=== PATIENT | female | born 1970 | race Hispanic/Latino ===

== ENCOUNTER 2017-05-12 11:03 | Emergency (ER) | payer MEDICAID, OTHER ==
[2017-05-12 11:04] VITALS: BMI 30.4
[2017-05-12 11:19] VITALS: BP 138/87; PULSE 88; RESP 20; TEMP 97.8; O2SAT 95
[2017-05-12 12:09] LABS: RBC URINE < 1 /hpf (0-3); URINE BACTERIA MANY (<OCC); URINE BILIRUBIN NEGATIVE (NEGATIVE); URINE BLOOD 1+ (NEGATIVE); URINE COLOR Yellow (YELLOW); URINE GLUCOSE (UA) NORMAL (Normal); URINE KETONE NEGATIVE (NEGATIVE); URINE LEUKOCYTE ESTERASE 3+ Leu/uL (Negative); URINE PROTEIN NEGATIVE (NEGATIVE); URINE UROBILINOGEN NORMAL mg/dL (0.2-1.0); WBC URINE 89 /hpf (0-5)
--- NOTE | 2017-05-12 12:59 | C.PDOC ---
History Of Present Illness 46 yr old female presents to the ER stating she has history of frequent UTIs and for the past 3-4 days she has had dysuria and suprapubic pain radiating to lower back. Patient also reports of vaginal discharge and also reports of "bump " near the clitoris. Patient denies fever, nausea, vomiting, diarrhea, weakness or numbness. Time Seen by Provider: 05/12/17 11:30 Chief Complaint (Nursing): Female Genitourinary History Per: Patient History/Exam Limitations: no limitations Onset/Duration Of Symptoms: Days (3-4) Past Medical History Reviewed: Historical Data, Nursing Documentation, Vital Signs Vital Signs: Last Vital Signs Temp 97.8 F 05/12/17 11:18 Pulse 88 05/12/17 11:18 Resp 20 05/12/17 11:18 BP 138/87 05/12/17 11:18 Pulse Ox 95 05/12/17 20:36 - Medical History PMH: CVA, Gastritis, Multiple Sclerosis - [facility] Procedures INJECT/INFUSE NEC (04/28/14) PSYCHIA INTERV/EVAL NEC (09/18/14) Family History: States: No Known Family Hx - Social History Hx Tobacco Use: No Hx Alcohol Use: No Hx Substance Use: No - Immunization History Hx Tetanus Toxoid Vaccination: No Hx Influenza Vaccination: Yes Hx Pneumococcal Vaccination: Yes Review Of Systems Except As Marked, All Systems Reviewed And Found Negative. Constitutional: Negative for: Fever Gastrointestinal: Positive for: Abdominal Pain (Suprapubic). Negative for: Nausea, Vomiting, Diarrhea Genitourinary: Positive for: Vaginal Discharge Neurological: Negative for: Weakness, Numbness Physical Exam - Physical Exam Appears: Non-toxic, No Acute Distress Skin: Warm, Dry, No Rash Head: Atraumatic, Normacephalic Eye(s): bilateral: Normal Inspection, PERRL, EOMI Oral Mucosa: Moist Neck: Normal ROM, Supple Chest: Symmetrical, No Tenderness Cardiovascular: Rhythm Regular, No Friction Rub, No Murmur Respiratory: Normal Breath Sounds, No Rales, No Rhonchi, No Stridor, No Wheezing Gastrointestinal/Abdominal: Normal Exam, Soft, No Tenderness, No Guarding, No Rebound Pelvic: No Vaginal Bleeding, No Cervical Motion Tenderness, No Adnexal Tenderness, Other ((+) Area of irritation to the pubic external exam, No vesicles. Clitoral ring intact. (+) whitish, foul smelling discharge) Extremity: Normal ROM, No Swelling Neurological/Psych: Oriented x3, Normal Speech, Normal Motor, Normal Sensation Gait: Steady ED Course And Treatment O2 Sat by Pulse Oximetry: 95 (RA) Pulse Ox Interpretation: Normal Medical Decision Making Medical Decision Making: PLAN: * HCG * Urinalysis * Cipro PO * Flagyl PO * Pyridium PO UA is (+) UTI. Patient treated with antibiotics. Disposition - Disposition Referrals: Justyna Hay MD [Staff Provider] - Disposition: HOME/ ROUTINE Disposition Time: 12:56 Condition: GOOD Additional Instructions: Follow up with the medical doctor within 1-2 days. Return if worsened. Prescriptions: Ciprofloxacin [Cipro] 1 tab PO BID #14 tab metroNIDAZOLE [Flagyl] 500 mg PO BID #14 tab Miconazole/Cleanser 17 On Wipe [Monistat 7 Combination Pack] 1 each VG DAILY #1 kit Instructions: Urinary Tract Infection in Women (DC), Vaginitis (ED) Forms: [employer] (Uzbek) - Clinical Impression Clinical Impression: Urinary tract infection, Vaginitis - PA / LAWN MOWER MECHANIC / Resident Statement MD/DO has reviewed & agrees with the documentation as recorded. - Scribe Statement The provider has reviewed the documentation as recorded by the Scribe Karla Mercado All medical record entries made by the Scribe were at my direction and personally dictated by me. I have reviewed the chart and agree that the record accurately reflects my personal performance of the history, physical exam, medical decision making, and the department course for this patient. I have also personally directed, reviewed, and agree with the discharge instructions and disposition.
== END 2017-05-12 13:12 | disposition home or self-care (01) ==
LOC: C.ER 11:03
DX: N39.0 Urinary tract infection, site not specified (principal); N76.0 Acute vaginitis

== ENCOUNTER 2017-11-12 13:32 | Emergency (ER) | payer MEDICAID, OTHER ==
[2017-11-12 13:32] VITALS: BMI 27.4
[2017-11-12 13:43] VITALS: BP 124/80; PULSE 94; TEMP 97.6; O2SAT 99
--- NOTE | 2017-11-12 14:12 | C.PDOC ---
History Of Present Illness 46 year old female with no PMHx as per patient, presents to the Ed c/o numbness , paresthesia and pain to bilateral upper extremities primarily when waking in the morning. Patient was seen at [facility] for pain to bilateral lower extremities s/p fall, patient had X-Rays done that showed no fracture. Patient reports she currently lives in a intermediate and that she is taking Xanax for " a skin condition and menopause". Patient denies fever, chills, nausea, vomit, back pain, headache. PMD : Dr. Hay Time Seen by Provider: 11/12/17 13:47 Chief Complaint (Nursing): Upper Extremity Problem/Injury History Per: Patient History/Exam Limitations: no limitations Onset/Duration Of Symptoms: Days Current Symptoms Are (Timing): Still Present Quality: "Pain" Recent travel outside of the [place]: No Additional History Per: Patient Past Medical History Reviewed: Historical Data, Nursing Documentation, Vital Signs Vital Signs: Last Vital Signs Temp 97.6 F 11/12/17 13:38 Pulse 94 H 11/12/17 13:38 Resp 17 11/12/17 14:21 BP 124/80 11/12/17 13:38 Pulse Ox 99 11/12/17 14:56 - Medical History PMH: CVA, Gastritis, Multiple Sclerosis Denies: Chronic Kidney Disease Surgical History: No Surg Hx - [facility] Procedures INJECT/INFUSE NEC (04/28/14) PSYCHIA INTERV/EVAL NEC (09/18/14) Family History: States: Unknown Family Hx - Social History Hx Tobacco Use: No Hx Alcohol Use: No Hx Substance Use: No - Immunization History Hx Tetanus Toxoid Vaccination: No Hx Influenza Vaccination: Yes Hx Pneumococcal Vaccination: Yes Review Of Systems Constitutional: Negative for: Fever, Chills Cardiovascular: Negative for: Chest Pain Respiratory: Negative for: Shortness of Breath Gastrointestinal: Negative for: Nausea, Vomiting Musculoskeletal: Positive for: Arm Pain Skin: Negative for: Rash Neurological: Positive for: Numbness. Negative for: Headache Physical Exam - Physical Exam Appears: Non-toxic, No Acute Distress, Other (disorganized, hypomanic) Skin: Normal Color, Warm, Dry Head: Atraumatic, Normacephalic Eye(s): bilateral: Normal Inspection Oral Mucosa: Moist Neck: Normal ROM, No Midline Cervical Tenderness, Supple Chest: Symmetrical Cardiovascular: Rhythm Regular Respiratory: Normal Breath Sounds, No Rales, No Rhonchi, No Wheezing Back: No Vertebral Tenderness, No Paraspinal Tenderness Extremity: Normal ROM, No Tenderness, Capillary Refill (< 2 seconds), No Swelling Extremity: Bilateral: Atraumatic, Normal Color And Temperature Pulses: Left Radial: Normal, Right Radial: Normal Neurological/Psych: Oriented x3, Normal Speech, Normal Motor, Normal Sensation Gait: Steady ED Course And Treatment O2 Sat by Pulse Oximetry: 99 (ON RA) Pulse Ox Interpretation: Normal Medical Decision Making Medical Decision Making: Impression: numbness to bilateral upper extremities Plan: * Tylenol 975 mg PO * Motrin 600 mg PO * Gabapentin 300 mg PO Patient was discussed with Dr. Hay who agrees with plan to start patient on Gabapentin for neuropathic pain Disposition Discussed With : Justyna Hay Doctor Will See Patient In The: Office Counseled Patient/Family Regarding: Need For Followup, Rx Given - Disposition Referrals: Justyna Hay MD [Staff Provider] - Disposition: HOME/ ROUTINE Disposition Time: 14:10 Condition: STABLE Prescriptions: Gabapentin 300 mg PO TID #12 capsule Forms: [facility] (Persian), General Discharge Instructions - POA Present On Arrival: None - Clinical Impression Clinical Impression: Numbness and tingling of both upper extremities - Scribe Statement The provider has reviewed the documentation as recorded by the Scribe Tio Thorpe All medical record entries made by the Scribe were at my direction and personally dictated by me. I have reviewed the chart and agree that the record accurately reflects my personal performance of the history, physical exam, medical decision making, and the department course for this patient. I have also personally directed, reviewed, and agree with the discharge instructions and disposition.
[2017-11-12 14:51] VITALS: RESP 17
== END 2017-11-12 14:21 | disposition home or self-care (01) ==
LOC: C.ER 13:32
DX: R20.2 Paresthesia of skin (principal); G35 Multiple sclerosis; Z86.73 Personal history of transient ischemic attack (TIA), and cerebral infarction without residual deficits

== ENCOUNTER 2018-01-15 21:32 | Emergency (ER) | payer MEDICAID, OTHER ==
[2018-01-15 21:33] VITALS: BMI 27.4
[2018-01-15 21:45] VITALS: BP 122/86; PULSE 82; RESP 16; TEMP 98.1; O2SAT 98
[2018-01-15 22:05] LABS: HCG,QUALITATIVE URINE NEGATIVE (NEGATIVE); SQUAMOUS EPITHIAL 6 /hpf (0-5); URINE BACTERIA OCC (<OCC); URINE BILIRUBIN NEGATIVE (NEGATIVE); URINE BLOOD 1+ (NEGATIVE); URINE CLARITY Hazy (Clear); URINE COLOR Yellow (YELLOW); URINE GLUCOSE (UA) NORMAL (Normal); URINE LEUKOCYTE ESTERASE TRACE Leu/uL (Negative); URINE PROTEIN NEGATIVE (NEGATIVE); URINE UROBILINOGEN NORMAL mg/dL (0.2-1.0)
--- NOTE | 2018-01-15 22:22 | C.PDOC ---
History Of Present Illness Patient complains of frequent urination but little amounts and associated with dysuria and flank pain since last night. She has history of prior UTIs and this feels similar. Denies fever, nausea, vomiting, abdominal pain. Time Seen by Provider: 01/15/18 22:13 Chief Complaint (Nursing): Back Pain History Per: Patient History/Exam Limitations: no limitations Onset/Duration Of Symptoms: Days Current Symptoms Are (Timing): Still Present Quality Of Discomfort: Burning Associated Symptoms: Back Pain (Flank), Urinary Symptoms (Dysuria, Frequency). denies: Fever, Chills, Nausea, Vomiting, Other (Abdominal pain) Alleviating Factors: None Recent travel outside of the [place]: No Abnormal Vaginal Bleeding: No Past Medical History Reviewed: Historical Data, Nursing Documentation, Vital Signs Vital Signs: Last Vital Signs Temp 98.1 F 01/15/18 21:42 Pulse 82 01/15/18 21:42 Resp 16 01/15/18 21:42 BP 122/86 01/15/18 21:42 Pulse Ox 98 01/15/18 22:37 - Medical History PMH: CVA, Gastritis, Multiple Sclerosis, Chronic Kidney Disease [facility] INJECT/INFUSE NEC (04/28/14) PSYCHIA INTERV/EVAL NEC (09/18/14) Family History: States: Unknown Family Hx - Social History Hx Tobacco Use: No Hx Alcohol Use: No Hx Substance Use: No - Immunization History Hx Tetanus Toxoid Vaccination: No Hx Influenza Vaccination: Yes Hx Pneumococcal Vaccination: Yes Review Of Systems Constitutional: Negative for: Fever, Chills Gastrointestinal: Negative for: Nausea, Vomiting, Abdominal Pain Genitourinary: Positive for: Dysuria, Frequency Musculoskeletal: Positive for: Back Pain (Flank) Physical Exam - Physical Exam Appears: Non-toxic Skin: Normal Color, Warm, Dry Head: Atraumatic, Normacephalic Eye(s): bilateral: Normal Inspection Oral Mucosa: Moist Chest: Symmetrical, No Tenderness Cardiovascular: Rhythm Regular Respiratory: Normal Breath Sounds, No Rales, No Rhonchi, No Wheezing Gastrointestinal/Abdominal: Bowel Sounds, Soft, No Tenderness, No Guarding, No Rebound Back: Normal Inspection, No CVA Tenderness Extremity: Bilateral: Atraumatic, Normal ROM Neurological/Psych: Oriented x3, Normal Speech ED Course And Treatment O2 Sat by Pulse Oximetry: 98 (Room air) Pulse Ox Interpretation: Normal Medical Decision Making Medical Decision Making: Impression: dysuria Plan: * UA * UCG Progress: UA shows LE, WBCs and bacteria. Patient symptomatic and will treat for UTI with Keflex. Patient remained afebrile in no distress. No signs of pyelonephritis. Patient stable discharge. Disposition Counseled Patient/Family Regarding: Diagnosis, Need For Followup, Rx Given - Disposition Referrals: Justyna Hay MD [Staff Provider] - Disposition: HOME/ ROUTINE Disposition Time: 22:22 Condition: GOOD Additional Instructions: Take antibiotic twice daily and be sure to finish taking all of antibiotic. Drink plenty of fluids. Follow up with your primary medical doctor or clinic in 2-5 days for further evaluation Prescriptions: Cephalexin [cephalexin] 500 mg PO Q12 #14 cap Instructions: Urinary Tract Infection, Adult (DC) Forms: [facility] (Trinidadian) - POA Present On Arrival: None - Clinical Impression Clinical Impression: Urinary tract infection - PA / GLACIOLOGIST / Resident Statement MD/DO has reviewed & agrees with the documentation as recorded. - Scribe Statement The provider has reviewed the documentation as recorded by the Scribham Byers All medical record entries made by the Britibham were at my direction and personally dictated by me. I have reviewed the chart and agree that the record accurately reflects my personal performance of the history, physical exam, medical decision making, and the department course for this patient. I have also personally directed, reviewed, and agree with the discharge instructions and disposition.
== END 2018-01-15 23:18 | disposition home or self-care (01) ==
LOC: C.ER 21:32
DX: N39.0 Urinary tract infection, site not specified (principal); G35 Multiple sclerosis; N18.9 Chronic kidney disease, unspecified; Z86.73 Personal history of transient ischemic attack (TIA), and cerebral infarction without residual deficits

== ENCOUNTER 2018-04-23 09:16 | Emergency (ER) | payer MEDICAID, OTHER ==
[2018-04-23 09:16] VITALS: BMI 27.4
[2018-04-23 09:26] VITALS: BP 135/88; PULSE 58; RESP 18; TEMP 97.8; O2SAT 97
== END 2018-04-23 09:31 | disposition left against medical advice (07) ==
LOC: C.ER 09:16
DX: Z02.89 Encounter for other administrative examinations (principal); R30.0 Dysuria

== ENCOUNTER 2018-07-02 09:58 | Emergency (ER) | payer MEDICAID, OTHER ==
[2018-07-02 09:58] VITALS: BMI 29.9
[2018-07-02 10:13] VITALS: BP 143/68; PULSE 99; RESP 20; TEMP 97.7; O2SAT 98
[2018-07-02 10:51] LABS: SQUAMOUS EPITHIAL 6 /hpf (0-5); URINE BILIRUBIN NEGATIVE (NEGATIVE); URINE BLOOD NEGATIVE (NEGATIVE); URINE CLARITY Hazy (Clear); URINE COLOR Yellow (YELLOW); URINE GLUCOSE (UA) NORMAL (Normal); URINE LEUKOCYTE ESTERASE NEG Leu/uL (Negative); URINE PROTEIN NEGATIVE (NEGATIVE)
--- NOTE | 2018-07-02 11:03 | C.PDOC ---
Time Seen by Provider: 07/02/18 10:29 Chief Complaint (Nursing): Female Genitourinary Past Medical History Vital Signs: Last Vital Signs Temp 97.7 F 07/02/18 10:06 Pulse 99 H 07/02/18 10:06 Resp 20 07/02/18 10:06 BP 143/68 07/02/18 10:06 Pulse Ox 98 07/02/18 10:06 - Medical History PMH: Anxiety, CVA, Gastritis, Chronic Kidney Disease, TIA Denies: Diabetes, Hepatitis, HIV, HTN, Multiple Sclerosis, Seizures, Sexually Transmitted Disease - [facility] Procedures INJECT/INFUSE NEC (04/28/14) PSYCHIA INTERV/EVAL NEC (09/18/14) Family History: States: Unknown Family Hx - Social History Hx Tobacco Use: No Hx Alcohol Use: No Hx Substance Use: No - Immunization History Hx Tetanus Toxoid Vaccination: No Hx Influenza Vaccination: Yes Hx Pneumococcal Vaccination: Yes ED Course And Treatment - Laboratory Results Lab Results: Urine Color Yellow (YELLOW) 07/02/18 10:30 Urine Clarity Hazy (Clear) 07/02/18 10:30 Urine pH 5.0 (5.0-8.0) 07/02/18 10:30 Ur Specific [place] 1.025 (1.003-1.030) 07/02/18 10:30 Urine Protein Negative mg/dL (NEGATIVE) 07/02/18 10:30 Urine Glucose (UA) Normal mg/dL (Normal) 07/02/18 10:30 Urine Ketones Negative mg/dL (NEGATIVE) 07/02/18 10:30 Urine Blood Negative (NEGATIVE) 07/02/18 10:30 Urine Nitrate Negative (NEGATIVE) 07/02/18 10:30 Urine Bilirubin Negative (NEGATIVE) 07/02/18 10:30 Urine Urobilinogen 2.0 mg/dL (0.2-1.0) H 07/02/18 10:30 Ur Leukocyte Esterase Neg Rubio/uL (Negative) 07/02/18 10:30 Urine WBC (Auto) 1 /hpf (0-5) 07/02/18 10:30 Urine RBC (Auto) 1 /hpf (0-3) 07/02/18 10:30 Ur Squamous Epith Cells 6 /hpf (0-5) H 07/02/18 10:30 Urine HCG, Qual Negative (NEGATIVE) 07/02/18 10:42 Urine HCG, Qual Negative (NEGATIVE) 07/02/18 10:42 O2 Sat by Pulse Oximetry: 98 Medical Decision Making Medical Decision Making: pt c/o vulvar/vaginal/dysuria discomfort many presentations for same large rolling suitcase suggests homeless internally motivated, babbling, bizarre, confabulatory suggests underlying mental illness pt refused pelvic/vaginal eval, left ED very angry and foul mouthed claiming she was sent by the Police to evaluate us, highly unlikely and did not prove ID to this effect eloped defer abx with no UTI/preg Disposition Doctor Will See Patient In The: Office Counseled Patient/Family Regarding: Studies Performed, Diagnosis - Disposition Disposition: HOME/ ROUTINE Disposition Time: 11:03 Condition: GOOD - Clinical Impression Clinical Impression: Dysuria
--- NOTE | 2018-07-02 23:39 | C.PDOC ---
History Of Present Illness 47-year-old female presents to the ED for evaluation of dysuria which began a few days ago. Patient has had multiple presentations to [facility] Emergency Department and [place] [facility] for the same. She denies fever, chills, vaginal discharge or discomfort at this time. Time Seen by Provider: 07/02/18 10:29 Chief Complaint (Nursing): Female Genitourinary History Per: Patient History/Exam Limitations: no limitations Onset/Duration Of Symptoms: Days Current Symptoms Are (Timing): Still Present Associated Symptoms: Urinary Symptoms (dysuria ). denies: Fever, Chills Additional History Per: Patient Abnormal Vaginal Bleeding: No Past Medical History Reviewed: Historical Data, Nursing Documentation, Vital Signs Vital Signs: Last Vital Signs Temp 97.7 F 07/02/18 10:06 Pulse 99 H 07/02/18 10:06 Resp 20 07/02/18 10:06 BP 143/68 07/02/18 10:06 Pulse Ox 98 07/02/18 11:03 - Medical History PMH: Anxiety, CVA, Gastritis, Chronic Kidney Disease, TIA Denies: Diabetes, Hepatitis, HIV, HTN, Multiple Sclerosis, Seizures, Sexually Transmitted Disease Surgical History: No Surg Hx - [facility] Procedures INJECT/INFUSE NEC (04/28/14) PSYCHIA INTERV/EVAL NEC (09/18/14) Family History: States: Unknown Family Hx - Social History Hx Tobacco Use: No Hx Alcohol Use: No Hx Substance Use: No - Immunization History Hx Tetanus Toxoid Vaccination: No Hx Influenza Vaccination: Yes Hx Pneumococcal Vaccination: Yes Review Of Systems Constitutional: Negative for: Fever, Chills Genitourinary: Positive for: Dysuria. Negative for: Vaginal Discharge Physical Exam - Physical Exam Appears: Non-toxic, No Acute Distress, Other (Bizarre, disheveled, rolling a large suitcase (apparently homeless)) Skin: Normal Color, Warm, Dry Head: Atraumatic, Normacephalic Eye(s): bilateral: Normal Inspection Oral Mucosa: Moist Neck: Supple Pelvic: Other (refusing ) Neurological/Psych: Other (internally motivated, confabulatory ) ED Course And Treatment - Laboratory Results Lab Results: Urine Color Yellow (YELLOW) 07/02/18 10:30 Urine Clarity Hazy (Clear) 07/02/18 10:30 Urine pH 5.0 (5.0-8.0) 07/02/18 10:30 Ur Specific [place] 1.025 (1.003-1.030) 07/02/18 10:30 Urine Protein Negative mg/dL (NEGATIVE) 07/02/18 10:30 Urine Glucose (UA) Normal mg/dL (Normal) 07/02/18 10:30 Urine Ketones Negative mg/dL (NEGATIVE) 07/02/18 10:30 Urine Blood Negative (NEGATIVE) 07/02/18 10:30 Urine Nitrate Negative (NEGATIVE) 07/02/18 10:30 Urine Bilirubin Negative (NEGATIVE) 07/02/18 10:30 Urine Urobilinogen 2.0 mg/dL (0.2-1.0) H 07/02/18 10:30 Ur Leukocyte Esterase Neg Rubio/uL (Negative) 07/02/18 10:30 Urine WBC (Auto) 1 /hpf (0-5) 07/02/18 10:30 Urine RBC (Auto) 1 /hpf (0-3) 07/02/18 10:30 Ur Squamous Epith Cells 6 /hpf (0-5) H 07/02/18 10:30 Urine HCG, Qual Negative (NEGATIVE) 07/02/18 10:42 Urine HCG, Qual Negative (NEGATIVE) 07/02/18 10:42 O2 Sat by Pulse Oximetry: 98 (on RA) Pulse Ox Interpretation: Normal Progress Note: Urinalysis ordered and reviewed. Medical Decision Making Medical Decision Making: pt c/o vulvar/vaginal/dysuria discomfort many presentations for same large rolling suitcase suggests homeless internally motivated, babbling, bizarre, confabulatory suggests underlying mental illness pt refused pelvic/vaginal eval, left ED very angry and foul mouthed claiming she was sent by the Police to evaluate us, highly unlikely and did not prove ID to this effect eloped defer abx with no UTI/preg Disposition - Disposition Disposition: ELOPEMENT - ER ONLY Disposition Time: 11:03 Condition: GOOD Instructions: Dysuria, Adult (DC) Forms: [facility] (French) - Clinical Impression Clinical Impression: Dysuria - Scribe Statement The provider has reviewed the documentation as recorded by the Scribe (Elaine Wakefield) Provider Attestation: All medical record entries made by the Scribe were at my direction and personally dictated by me. I have reviewed the chart and agree that the record accurately reflects my personal performance of the history, physical exam, medical decision making, and the department course for this patient. I have also personally directed, reviewed, and agree with the discharge instructions and disposition.
== END 2018-07-02 11:00 | disposition left against medical advice (07) ==
LOC: C.ER 09:58
DX: R30.0 Dysuria (principal)

== ENCOUNTER 2018-08-13 06:45 | Emergency (ER) | payer MEDICAID, OTHER ==
[2018-08-13 06:45] VITALS: BMI 31.6
[2018-08-13 06:58] VITALS: RESP 20; TEMP 98
[2018-08-13 08:10] LABS: HCG,QUALITATIVE URINE NEGATIVE (NEGATIVE)
[2018-08-13 08:13] LABS: SQUAMOUS EPITHIAL 2 /hpf (0-5); URINE BILIRUBIN NEGATIVE (NEGATIVE); URINE BLOOD NEGATIVE (NEGATIVE); URINE CLARITY Hazy (Clear); URINE COLOR Yellow (YELLOW); URINE GLUCOSE (UA) NORMAL (Normal); URINE LEUKOCYTE ESTERASE TRACE Leu/uL (Negative); URINE PROTEIN NEGATIVE (NEGATIVE); URINE UROBILINOGEN NORMAL mg/dL (0.2-1.0)
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
[2018-08-13 09:24] VITALS: BP 90/53; PULSE 90
[2018-08-13 11:33] VITALS: O2SAT 99
== END 2018-08-13 09:31 | disposition home or self-care (01) ==
LOC: C.ER 06:45
DX: R30.0 Dysuria (principal)

== ENCOUNTER 2018-09-19 19:39 | Emergency (ER) | payer MEDICAID, OTHER ==
[2018-09-19 19:40] VITALS: BMI 31.6
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
[2018-09-19 20:24] LABS: BASO % 0.5 % (0.0-2.0); EOS # 0.1 K/uL (0.0-0.7); EOS % 0.7 % (0.0-4.0); HEMOGLOBIN 13.3 g/dL (11.0-16.0); LYMPH # 0.8 K/uL (1.0-4.3); LYMPH % 9.1 % (20.0-40.0); MEAN CELL VOLUME 82.3 fL (81.0-99.0); MEAN CORPUSCULAR HEMOGLOBIN 26.7 pg (27.0-31.0); MEAN CORPUSCULAR HGB CONC 32.5 g/dL (33.0-37.0); MEAN PLATELET VOLUME 8.2 fL (7.2-11.7); MONO # 0.4 K/uL (0.0-0.8); MONO % 4.4 % (0.0-10.0); NEUT # 7.3 K/uL (1.8-7.0); NEUT % 85.3 % (50.0-75.0); NRBC % 0.1 % (0.0-2.0); PLATELET COUNT 273 K/uL (130-400); RBC 4.99 Mil/uL (3.80-5.20); RED CELL DISTRIBUTION WIDTH 17.4 % (11.5-14.5); WHITE BLOOD COUNT 8.6 K/uL (4.8-10.8)
[2018-09-19 20:36] LABS: ALB/GLOB RATIO 1.3 (1.0-2.1); ALBUMIN 4.5 g/dL (3.5-5.0); BLOOD UREA NITROGEN 19 mg/dL (7-17); CALCIUM 9.7 mg/dl (8.6-10.4); GFR NON-AFRICAN AMERICAN > 60
[2018-09-19 20:38] LABS: PROTHROMBIN TIME 10.5 SECONDS (9.7-12.2)
[2018-09-19 20:50] LABS: ALT/SGPT 20 U/L (9-52); AST/SGOT 43 U/L (14-36)
[2018-09-19] MEDS ORDERED: Sodium Chloride 0.9% 1,000 ML ONE (20:56)
[2018-09-19] MEDS: Sodium Chloride 0.9% 1,000 ML IV ONE (20:56)
[2018-09-19] MEDS ORDERED: Iodixanol 320 mg/ml 150 ml Bottle IV ONE (21:06)
[2018-09-19 22:27] LABS: LYMPHOCYTE 12 % (20-40); MONOCYTE 3 % (0-10); NEUTROPHIL 85 % (50-75); TOTAL CELLS COUNTED 100
[2018-09-19 22:28] LABS: PLATELET ESTIMATE NORMAL (NORMAL)
[2018-09-19 22:29] LABS: HYPOCHROMIC SLIGHT
[2018-09-19 22:30] LABS: ANISOCYTOSIS SLIGHT
[2018-09-20] MEDS: Alum-Mag Hydrox-Simethicone Susp (30 mL) PO STA (00:04)
[2018-09-20] MEDS ORDERED: Aluminum Hydroxide/Magnesium Hydroxide Susp (30 mL) ONE (00:07)
[2018-09-20 02:28] VITALS: RESP 20
[2018-09-20 04:24] VITALS: BP 109/68; PULSE 65; TEMP 97.3; O2SAT 97
--- NOTE | 2018-09-20 15:02 | CT ---
Date of service: 09/19/2018 PROCEDURE: CTA HEAD AND NECK WITH CONTRAST HISTORY: headache/ neck pain COMPARISON: None available. TECHNIQUE: Initial noncontrast head CT was performed. Subsequently, CT angiogram of the head and neck were performed after the intravenous administration of 80 mL of Omnipaque 350. Contiguous 1.5mm thick images were obtained in the axial plane of the neck. 2-D coronal and sagittal MPR images were obtained. Imaging postprocessing was performed with 3-D images also obtained. A delayed contrast head CT was also obtained. This CT exam was performed using one or more of the following dose reduction techniques: Automated exposure control, adjustment of the mA and/or kV according to patient size, and/or use of iterative reconstruction technique. Contrast dose: 100 mL Visipaque 320 Radiation dose: Total exam DLP = 573.87 mGy-cm. FINDINGS: HEAD: Right: The intracranial internal carotid artery, and anterior and middle cerebral arteries are widely patent. Left: The intracranial internal carotid artery, and anterior and middle cerebral arteries are widely patent. Posterior circulation: The visualized intracranial vertebral arteries, basilar artery and posterior cerebral arteries are widely patent. There is no endoluminal filling defect to suggest thrombus. There is no intracranial saccular aneurysm. NECK: There is a three vessel aortic arch. There is no stenosis at the origins of the great vessels at the level of the aortic arch. No atherosclerotic calcification or mural plaque present. Right Carotid: On the right, the common carotid, internal carotid and external carotid arteries are widely patent. There is no hemodynamically significant stenosis in the internal carotid artery by NASCET criteria. Left Carotid: On the left, the common carotid, internal carotid and external carotid arteries are widely patent. There is no hemodynamically significant stenosis in the internal carotid artery by NASCET criteria. The vertebral arteries are widely patent. The lung apices are clear. IMPRESSION: 1. No evidence of endoluminal thrombus,occlusion or definite significant stenosis in the intracranial arteries. 2. No evidence of hemodynamically significant stenosis in the internal carotid arteries. 3. Patent bilateral vertebral arteries. A preliminary report was provided by [facility].
--- NOTE | 2018-09-20 23:49 | CARD ---
APPROVED REPORT Date of service: 09/19/2018 EKG Measurement Heart [id number] <Conclusion> Normal sinus rhythm with sinus arrhythmia Normal ECG
== END 2018-09-20 05:55 | disposition home or self-care (01) ==
LOC: C.ER 19:39
DX: R51 Headache (principal); Z59.0 Homelessness; Z86.73 Personal history of transient ischemic attack (TIA), and cerebral infarction without residual deficits
CPT/HCPCS: 70496; 70498; 80053; 81025; 82948; 85025; 85610; 85730; 93005; 96374; 99285; J1885; J7030; Q9967

== ENCOUNTER 2018-10-11 19:56 | Emergency (ER) | payer OTHER ==
[2018-10-11 19:56] VITALS: BMI 31.6
[2018-10-11 20:26] VITALS: BP 127/78; PULSE 78; RESP 20; TEMP 98.4; O2SAT 100
--- NOTE | 2018-10-11 20:41 | C.PDOC ---
History Of Present Illness 47 year old female presents with bruising to the left antecubital area. Patient states she was seen at a hospital in [place], IV access was attempted but unsuccessful and left bruise and pain to the left arm that is radiating to the left axilla and left breast area. She reports Hx of breast implant and is concerned that the implant is being affected. No medication or dye was injected into IV as they were never able to get access. Denies fever, SOB, chest pain, swelling, or redness. Time Seen by Provider: 10/11/18 20:28 Chief Complaint (Nursing): Upper Extremity Problem/Injury History Per: Patient History/Exam Limitations: no limitations Onset/Duration Of Symptoms: Days Current Symptoms Are (Timing): Still Present Recent travel outside of the [place] States: No Past Medical History Reviewed: Historical Data, Nursing Documentation, Vital Signs Vital Signs: Last Vital Signs Temp 98.4 F 10/11/18 20:05 Pulse 78 10/11/18 20:05 Resp 20 10/11/18 20:05 BP 127/78 10/11/18 20:05 Pulse Ox 100 10/11/18 20:05 Primary Care Provider: Justyna Hay - Medical History PMH: Anxiety, CVA, Gastritis, TIA Denies: Diabetes, Hepatitis, HIV, HTN, Multiple Sclerosis, Chronic Kidney Disease, Seizures, Sexually Transmitted Disease - [facility] Procedures INJECT/INFUSE NEC (04/28/14) PSYCHIA INTERV/EVAL NEC (09/18/14) Family History: States: Unknown Family Hx - Social History Hx Tobacco Use: No Hx Alcohol Use: No Hx Substance Use: No - Immunization History Hx Tetanus Toxoid Vaccination: Yes Hx Influenza Vaccination: Yes Hx Pneumococcal Vaccination: Yes Review Of Systems Constitutional: Negative for: Fever Respiratory: Negative for: Shortness of Breath Musculoskeletal: Positive for: Other (Left arm pain) Skin: Positive for: Bruising Neurological: Negative for: Weakness, Numbness Physical Exam - Physical Exam Appears: Non-toxic Skin: Warm, Other (Heat rash to mid upper chest not involving the breast.) Head: Atraumatic, Normacephalic Eye(s): bilateral: Normal Inspection Lymphatic: No Axilla Node Tenderness Chest: Symmetrical, No Tenderness, No Ecchymosis, No Other (Swelling) Extremity: Normal ROM (x4), Capillary Refill (<2 seconds), Other (Superficial ecchymosis to left lateral antecubital area. No palpable induration, no warmth, no tenderness, no swelling.) Pulses: Left Radial: Normal, Right Radial: Normal Neurological/Psych: Oriented x3, Normal Speech, Normal Motor, Normal Sensation ED Course And Treatment O2 Sat by Pulse Oximetry: 100 (Room air) Pulse Ox Interpretation: Normal Progress Note: Patient is resting comfortably in no acute distress, vitals are stable, she was reassured and discharged home with instructions to follow up with PMD. Disposition Counseled Patient/Family Regarding: Diagnosis, Need For Followup, Rx Given - Disposition Disposition: HOME/ ROUTINE Disposition Time: 20:39 Condition: STABLE Additional Instructions: Please follow up with PMD Apply cold compress to area Take tylenol for pain Return to ER if moderate swelling, redness, weakness of the arm, difficulty breathing or worse Instructions: Superficial Phlebitis Forms: [facility] (German), Gen Discharge Inst Frisian - Clinical Impression Clinical Impression: Thrombophlebitis arm, Arm bruise - PA / RELIGION TEACHER / Resident Statement MD/DO has reviewed & agrees with the documentation as recorded. - Scribe Statement The provider has reviewed the documentation as recorded by the Scribham Byers All medical record entries made by the Michelle were at my direction and personally dictated by me. I have reviewed the chart and agree that the record accurately reflects my personal performance of the history, physical exam, medical decision making, and the department course for this patient. I have also personally directed, reviewed, and agree with the discharge instructions and disposition.
== END 2018-10-11 20:28 | disposition home or self-care (01) ==
LOC: C.ER 19:56
DX: S40.022A Contusion of left upper arm, initial encounter (principal); X58.XXXA Exposure to other specified factors, initial encounter; I80.8 Phlebitis and thrombophlebitis of other sites; Z86.73 Personal history of transient ischemic attack (TIA), and cerebral infarction without residual deficits

== ENCOUNTER 2018-10-25 14:29 | Emergency (ER) | payer OTHER ==
[2018-10-25 14:29] VITALS: BMI 31.6
[2018-10-25 14:44] VITALS: RESP 20; TEMP 97.3; O2SAT 98
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
[2018-10-25 16:02] VITALS: BP 99/69; PULSE 90
--- NOTE | 2018-10-25 16:04 | RAD ---
Date of service: 10/25/2018 PROCEDURE: Right Knee Radiographs. HISTORY: knee pain COMPARISON: None. TECHNIQUE: 2 views obtained. FINDINGS: BONES: No fracture seen. JOINTS: Arthrosis JOINT EFFUSION: None. OTHER FINDINGS: Anterior soft tissues anterior to the expected patellar tendon course show reticulated edema nonspecific-correlate clinically IMPRESSION: No fracture or lytic lesion. Arthrosis. Nonspecific anterior prepatellar tendon subcutaneous edema like changes. Correlate clinically.
== END 2018-10-25 16:02 | disposition home or self-care (01) ==
LOC: C.ER 14:29
DX: M25.561 Pain in right knee (principal)